=== PATIENT | female | born 1995 | race Caucasian/White ===

== ENCOUNTER 2021-07-29 16:02 | Observation (INO) ==
[2021-07-29 17:55] LABS: Basophils % 0.4 %; Eosinophils # 0.2 K/mcL (0.0-0.6); Eosinophils % 2.9 %; Hemoglobin 13.9 g/dL (11.5-15.4); Immature Granulocytes % 0.6 % (0-4); Lymphocytes # 2.9 K/mcL (0.6-4.6); Lymphocytes % 36.4 %; Mean Corpuscular HGB Conc 33.9 g/dL (31.6-35.5); Mean Corpuscular Hemoglobin 30.3 pg (28.0-33.3); Mean Corpuscular Volume 89.3 fL (83.0-100.0); Mean Platelet Volume 9.7 fL (9.4-12.4); Monocytes # 0.4 K/mcL (0.0-1.3); Monocytes % 5.3 %; Neutrophils # 4.3 K/mcL (1.6-8.9); Platelet Count 211 K/mcL (140-400); Red Blood Count 4.59 M/mcL (3.82-4.97); Segmented Neutrophils % 54.4 %; White Blood Count 7.9 K/mcL (4.3-11.1)
[2021-07-29 18:01] LABS: Amorphous Sediment,Urine Few per hpf (None-Few); Bacteria,Urine Few per hpf (None-Few); Bilirubin,Urine Negative (Negative); Blood,Urine Negative (Negative); Clarity,Urine Turbid (Clear); Color,Urine Yellow (Yellow); Glucose,Urine (UA) Normal (Normal); Ketones,Urine Negative (Negative); Leukocyte Esterase,Urine Negative (Negative); Mucus,Urine Few per lpf (None-Few); Nitrite,Urine Negative (Negative); PH,Urine 7.5 pH Units (5.0-8.0); Protein,Urine Trace mg/dL (Neg-Trace); Specific Gravity,Urine 1.021 (1.010-1.025); Squamous Epithelial Cell,Urine Few per hpf (None-Few); Urobilinogen,Urine Normal (Normal); WBC,Urine 0-3 per hpf (0-3)
[2021-07-29 18:03] LABS: Amphetamine Screen,Urine Negative ng/mL (Cutoff=1000); Barbiturate Screen,Urine Negative ng/mL (Cutoff=200); Benzodiazepines Screen,Urine Negative ng/mL (Cutoff=200); Cannabinoid Screen,Urine Negative ng/mL (Cutoff = 50); Cocaine Screen,Urine Negative ng/mL (Cutoff= 300); Opiate Screen,Urine Negative ng/mL (Cutoff=300); Phencyclidine Screen,Urine Negative ng/mL (Cutoff=25)
[2021-07-29 18:10] LABS: Estimated Average Glucose 163 mg/dl; Hemoglobin A1C 7.3 %
[2021-07-29 18:13] LABS: Acetaminophen < 10 mcg/mL (10-20); BUN/Creatinine Ratio 13 (6-26); Blood Urea Nitrogen 7 mg/dL (6-20); Calcium 9.9 mg/dL (8.6-10.3); Carbon Dioxide 26 mEq/L (23-29); Chloride 102 mEq/L (98-107); Ethanol < 10 mg/dL (Less than 10); Glucose 133 mg/dL (70-105); Osmolality,Calculated 286 (280-300); Potassium 3.8 mEq/L (3.5-5.1); Salicylate < 2.5 mg/dL (15.0-30.0); Sodium 138 mEq/L (136-145); eGFR For African Americans > 60 (> 60); eGFR For Non-African Americans > 60 (> 60)
[2021-07-29 23:53] LABS: Influenza A PCR Negative (Negative); Influenza B PCR Negative (Negative); Resp. Syncytial Virus PCR Negative (Negative)
[2021-07-30 00:02] LABS: SARS-CoV-2 by PCR (In House) Negative (Negative)
[2021-07-30] MEDS ORDERED: hydrOXYzine pamoate 25 MG CAPSULE PO PRN (00:37)
[2021-07-30] MEDS ORDERED: haloperidoL 5 MG TABLET PO PRN (00:37)
[2021-07-30] MEDS ORDERED: *HR* LORazepam 1 MG TABLET PO PRN (00:37)
[2021-07-30] MEDS ORDERED: Acetaminophen 325 MG TABLET PO PRN (00:37)
[2021-07-30] MEDS ORDERED: *HR* LORazepam 2 MG/ML VIAL IM PRN (00:37)
[2021-07-30] MEDS ORDERED: Haloperidol Lactate 5 MG/ML VIAL IM PRN (00:37)
[2021-07-30] MEDS ORDERED: traZODone 50 MG TABLET PO PRN (00:37)
[2021-07-30] MEDS ORDERED: Ibuprofen 400 MG TABLET PO PRN (00:37)
[2021-07-30] MEDS ORDERED: Dulaglutide [Trulicity] 0.75 MG/0.5 ML Pen.Injctr SQ SCH (01:00)
[2021-07-30 01:44] VITALS: O2SAT 95
[2021-07-30] MEDS: Cholecalciferol (D-3) 1,000 UNIT (25MCG) TABLET PO SCH ×2 (01:44→09:01)
[2021-07-30] MEDS ORDERED: Mag Hydrox/Al Hydrox/Simeth 30 ML UDC PO PRN (08:04)
[2021-07-30] MEDS ORDERED: MOM Conc 10 ML UD.LIQ PO PRN (08:04)
[2021-07-30] MEDS ORDERED: PARoxetine 20 MG TABLET PO SCH (09:00)
[2021-07-30] MEDS: *HR* Metformin 500 MG TABLET PO SCH ×2 (09:01→16:35)
[2021-07-30 20:23] VITALS: BP 108/73; PULSE 102; TEMP 98.6
== END 2021-07-30 20:40 | disposition home or self-care (01) ==
LOC: EMEROOARM 16:02 → 1ANU 07-30 00:51 → INTOOBSV 07-30 00:51 → 1ANU 07-30 01:30
PROVIDERS: ADMIT Psychiatry & Neurology Psychiatry; ATTEND Psychiatry & Neurology Psychiatry